=== PATIENT | male | born 1930 | race Caucasian/White ===

== ENCOUNTER 2021-05-01 23:33 | Inpatient (IN) | payer MEDICARE ==
[~2021-05-01] VITALS: Ht 190.5 cm; Wt 79.0 kg
[2021-05-01] MEDS ORDERED: FURO20TA2 PO (23:51)
[2021-05-01] MEDS ORDERED: TAMS1CAP17 PO (23:51)
[2021-05-01] MEDS ORDERED: PROP40TA62 PO (23:51)
[2021-05-01] MEDS ORDERED: WARF4TAB52 PO (23:51)
[2021-05-01] MEDS ORDERED: AMLO1TAB24 (23:51)
[2021-05-01] MEDS ORDERED: WARF-60 PO (23:51)
[2021-05-01] MEDS ORDERED: FINA5TAB2 PO (23:51)
[2021-05-01] MEDS ORDERED: SIMV20TA22 PO (23:51)
[2021-05-01] MEDS ORDERED: BACTDSTA (23:51)
[2021-05-01] MEDS ORDERED: PHEN100C PO (23:51)
[2021-05-02] VITALS (18 sets, daily range): BP systolic 116–208; BP diastolic 57–92
[2021-05-02 00:28] LABS: HEMATOCRIT 46.9 % (42.0-52.0); HEMOGLOBIN 15.4 g/dl (13.5-17.5); MEAN CORPUSCULAR HEMOGLOBIN 30.5 pg (27.0-33.0); MEAN CORPUSCULAR HGB CONC 32.8 g/dl (32.0-36.5); MEAN CORPUSCULAR VOLUME 92.9 fl (80.0-96.0); PLATELET COUNT, AUTOMATED 186 10^3/uL (150-450); RED BLOOD COUNT 5.05 10^6/uL (4.30-6.10); WHITE BLOOD COUNT 13.2 10^3/uL (4.0-10.0)
[2021-05-02 00:42] LABS: INR 1.29; PROTHROMBIN TIME 16.5 SECONDS (12.7-14.5)
[2021-05-02 01:02] LABS: RSV AMPLIFICATION NEGATIVE (NEGATIVE)
[2021-05-02] MEDS ORDERED: NS 1,000 ML IV SCH ×2 (02:30→11:30)
[2021-05-02] MEDS ORDERED: ASPIRIN 81MG ENTERIC TABLET PO SCH (03:00)
[2021-05-02] MEDS ORDERED: cefTRIAXone SOD 1 GM in D5W MINI-BAG PLUS 50 ML IV SCH (04:00)
[2021-05-02] MEDS ORDERED: DOXYCYCLINE HYCLATE 100 MG in D5W MINI-BAG PLUS 100 ML IV SCH (05:00)
[2021-05-02] MEDS ORDERED: DEXTROSE 50% 50 ML SYRINGE IV PRN (07:25)
[2021-05-02] MEDS ORDERED: GLUCAGON INJ 1MG VIAL SC PRN (07:25)
[2021-05-02] MEDS ORDERED: GLUCOSE 4GM CHEW TABLET PO PRN (07:25)
[2021-05-02] MEDS: HumaLOG INSULIN (NovoLOG) PER UNIT SC SCH ×4 (08:01→23:56)
[2021-05-02] MEDS ORDERED: ASPIRIN 300 MG SUPP PR SCH (09:00)
[2021-05-02 09:02] LABS: HEMATOCRIT 45.2 % (42.0-52.0); HEMOGLOBIN 14.8 g/dl (13.5-17.5); MEAN CORPUSCULAR HEMOGLOBIN 30.9 pg (27.0-33.0); MEAN CORPUSCULAR HGB CONC 32.7 g/dl (32.0-36.5); MEAN CORPUSCULAR VOLUME 94.4 fl (80.0-96.0); PLATELET COUNT, AUTOMATED 155 10^3/uL (150-450); RED BLOOD COUNT 4.79 10^6/uL (4.30-6.10); WHITE BLOOD COUNT 13.5 10^3/uL (4.0-10.0)
[2021-05-02 09:22] LABS: INR 1.41; PROTHROMBIN TIME 17.7 SECONDS (12.7-14.5)
[2021-05-02 09:23] LABS: PARTIAL THROMBOPLASTIN TIME 32.4 SECONDS (25.9-37.0)
[2021-05-02 09:25] LABS: ALBUMIN 3.4 GM/DL (3.2-5.2); BILIRUBIN,DIRECT 0.2 MG/DL (0.0-0.2); BILIRUBIN,TOTAL 0.7 MG/DL (0.2-1.0); CALCIUM LEVEL 8.9 MG/DL (8.8-10.2); CHOLESTEROL RISK RATIO 2.942 (<5); CREATININE FOR GFR 1.26 MG/DL (0.70-1.30); GLOMERULAR FILTRATION RATE 57.5 (>35); TOTAL PROTEIN 7.5 GM/DL (6.4-8.2)
[2021-05-02 09:39] LABS: HEMOGLOBIN A1c 5.6 %
[2021-05-02] MEDS ORDERED: MED NOTE (10:24)
[2021-05-02] MEDS ORDERED: VITATAB64 PO (10:28)
[2021-05-02] MEDS ORDERED: LOSA100T45 PO (10:28)
[2021-05-02] MEDS ORDERED: VITMTA PO (10:28)
[2021-05-02] MEDS ORDERED: FISH1000 PO (10:28)
[2021-05-02 10:37] LABS: ATYPICAL LYMPH 6 % (0-5); LYMPHOCYTES 12 % (16-44); MONOCYTES 12 % (0-5); NEUTROPHILS 70 % (28-66); PLATELET ESTIMATE NORMAL (NORMAL)
[2021-05-02 10:38] LABS: ANISOCYTOSIS 1+; POLYCHROMASIA 1+
[2021-05-02] MEDS ORDERED: HOME MED LIST COMPLETE! XX SCH (10:40)
[2021-05-02] MEDS ORDERED: ISOVUE-370 76% 100ML VIAL As Ordered ONE (12:38)
[2021-05-02] MEDS ORDERED: SODIUM CHLORIDE 3% 500 ML IV SCH (14:00)
[2021-05-02 14:01] LABS: BLOOD UREA NITROGEN 35 MG/DL (7-18); CALCIUM LEVEL 8.8 MG/DL (8.8-10.2); CARBON DIOXIDE LEVEL 21 MEQ/L (21-32); CHLORIDE LEVEL 113 MEQ/L (98-107); CREATININE FOR GFR 1.13 MG/DL (0.70-1.30); GLOMERULAR FILTRATION RATE > 60.0 (>35); GLUCOSE, FASTING 113 MG/DL (70-100); POTASSIUM SERUM 5.4 MEQ/L (3.5-5.1); SODIUM LEVEL 141 MEQ/L (136-145)
[2021-05-02] MEDS: PHENYTOIN 100 MG/2 ML VIAL (J1165) IV SCH ×2 (15:50→21:19)
[2021-05-02 18:44] LABS: BLOOD UREA NITROGEN 32 MG/DL (7-18); CARBON DIOXIDE LEVEL 25 MEQ/L (21-32); CHLORIDE LEVEL 110 MEQ/L (98-107); CREATININE FOR GFR 1.14 MG/DL (0.70-1.30); GLOMERULAR FILTRATION RATE > 60.0 (>35); GLUCOSE, FASTING 132 MG/DL (70-100); POTASSIUM SERUM 4.9 MEQ/L (3.5-5.1); SODIUM LEVEL 142 MEQ/L (136-145)
[2021-05-02 19:23] LABS: MAGNESIUM LEVEL 2.4 MG/DL (1.8-2.4); PHOSPHORUS LEVEL 2.9 MG/DL (2.5-4.9)
[2021-05-03] VITALS (37 sets, daily range): BP systolic 114–184; BP diastolic 56–113
[2021-05-03 00:36] LABS: CALCIUM LEVEL 8.5 MG/DL (8.8-10.2); CREATININE FOR GFR 1.23 MG/DL (0.70-1.30); GLOMERULAR FILTRATION RATE 59.1 (>35); POTASSIUM SERUM 4.5 MEQ/L (3.5-5.1)
[2021-05-03] MEDS ORDERED: GLYCOPYRROLATE INJ 0.2 MG/ML 2 ML VIAL IV ONE (04:55)
[2021-05-03] MEDS: PHENYTOIN 100 MG/2 ML VIAL (J1165) IV SCH ×3 (05:21→21:35)
[2021-05-03 05:27] LABS: HEMATOCRIT 43.4 % (42.0-52.0); HEMOGLOBIN 13.9 g/dl (13.5-17.5); MEAN CORPUSCULAR VOLUME 93.7 fl (80.0-96.0); PLATELET COUNT, AUTOMATED 142 10^3/uL (150-450); RED BLOOD COUNT 4.63 10^6/uL (4.30-6.10); WHITE BLOOD COUNT 11.8 10^3/uL (4.0-10.0)
[2021-05-03 05:38] LABS: INR 1.6; PROTHROMBIN TIME 19.5 SECONDS (12.7-14.5)
[2021-05-03 06:00] LABS: BLOOD UREA NITROGEN 35 MG/DL (7-18); CALCIUM LEVEL 8.7 MG/DL (8.8-10.2); CARBON DIOXIDE LEVEL 23 MEQ/L (21-32); CHLORIDE LEVEL 118 MEQ/L (98-107); CREATININE FOR GFR 1.15 MG/DL (0.70-1.30); GLOMERULAR FILTRATION RATE > 60.0 (>35); GLUCOSE, FASTING 138 MG/DL (70-100); POTASSIUM SERUM 4.5 MEQ/L (3.5-5.1); SODIUM LEVEL 149 MEQ/L (136-145)
[2021-05-03] MEDS: HumaLOG INSULIN (NovoLOG) PER UNIT SC SCH ×3 (06:00→17:56)
[2021-05-03 11:57] LABS: BLOOD UREA NITROGEN 34 MG/DL (7-18); CALCIUM LEVEL 8.8 MG/DL (8.8-10.2); CARBON DIOXIDE LEVEL 25 MEQ/L (21-32); CHLORIDE LEVEL 119 MEQ/L (98-107); CREATININE FOR GFR 1.11 MG/DL (0.70-1.30); GLOMERULAR FILTRATION RATE > 60.0 (>35); GLUCOSE, FASTING 143 MG/DL (70-100); POTASSIUM SERUM 4.2 MEQ/L (3.5-5.1); SODIUM LEVEL 150 MEQ/L (136-145)
[2021-05-03 19:12] LABS: BLOOD UREA NITROGEN 34 MG/DL (7-18); CALCIUM LEVEL 9.6 MG/DL (8.8-10.2); CARBON DIOXIDE LEVEL 27 MEQ/L (21-32); CHLORIDE LEVEL 115 MEQ/L (98-107); CREATININE FOR GFR 1.21 MG/DL (0.70-1.30); GLOMERULAR FILTRATION RATE > 60.0 (>35); GLUCOSE, FASTING 129 MG/DL (70-100); POTASSIUM SERUM 4.1 MEQ/L (3.5-5.1); SODIUM LEVEL 151 MEQ/L (136-145)
[2021-05-04] VITALS (36 sets, daily range): BP systolic 137–194; BP diastolic 61–116
[2021-05-04 00:39] LABS: BLOOD UREA NITROGEN 31 MG/DL (7-18); CALCIUM LEVEL 8.9 MG/DL (8.8-10.2); CARBON DIOXIDE LEVEL 24 MEQ/L (21-32); CHLORIDE LEVEL 119 MEQ/L (98-107); CREATININE FOR GFR 1.09 MG/DL (0.70-1.30); GLOMERULAR FILTRATION RATE > 60.0 (>35); GLUCOSE, FASTING 134 MG/DL (70-100); POTASSIUM SERUM 4.3 MEQ/L (3.5-5.1); SODIUM LEVEL 148 MEQ/L (136-145)
[2021-05-04] MEDS: PHENYTOIN 100 MG/2 ML VIAL (J1165) IV SCH ×3 (05:04→22:00)
[2021-05-04] MEDS: HumaLOG INSULIN (NovoLOG) PER UNIT SC SCH ×4 (05:34→17:27)
[2021-05-04 08:15] LABS: HEMATOCRIT 45.1 % (42.0-52.0); HEMOGLOBIN 14.1 g/dl (13.5-17.5); MEAN CORPUSCULAR HGB CONC 31.3 g/dl (32.0-36.5); PLATELET COUNT, AUTOMATED 149 10^3/uL (150-450); WHITE BLOOD COUNT 12.6 10^3/uL (4.0-10.0)
[2021-05-04 08:31] LABS: INR 1.68; PROTHROMBIN TIME 20.2 SECONDS (12.7-14.5)
[2021-05-04 08:46] LABS: BLOOD UREA NITROGEN 32 MG/DL (7-18); CALCIUM LEVEL 9.3 MG/DL (8.8-10.2); CARBON DIOXIDE LEVEL 25 MEQ/L (21-32); CHLORIDE LEVEL 118 MEQ/L (98-107); CREATININE FOR GFR 1.12 MG/DL (0.70-1.30); GLOMERULAR FILTRATION RATE > 60.0 (>35); GLUCOSE, FASTING 136 MG/DL (70-100); POTASSIUM SERUM 4.2 MEQ/L (3.5-5.1); SODIUM LEVEL 152 MEQ/L (136-145)
[2021-05-04 12:19] LABS: BLOOD UREA NITROGEN 30 MG/DL (7-18); CALCIUM LEVEL 9.1 MG/DL (8.8-10.2); CARBON DIOXIDE LEVEL 28 MEQ/L (21-32); CHLORIDE LEVEL 119 MEQ/L (98-107); GLOMERULAR FILTRATION RATE > 60.0 (>35); GLUCOSE, FASTING 136 MG/DL (70-100); POTASSIUM SERUM 3.9 MEQ/L (3.5-5.1); SODIUM LEVEL 151 MEQ/L (136-145)
[2021-05-04] MEDS: METOPROLOL 5 MG/5 ML VIAL IV SCH ×2 (14:08→20:13)
[2021-05-04 14:48] LABS: PHENYTOIN (DILANTIN) 11.6 UG/ML (10.0-20.0)
[2021-05-04] MEDS: ASPIRIN 300 MG SUPP PR SCH (15:15)
[2021-05-04] MEDS: D5W/0.45% SODIUM CHLORIDE 1,000 ML IV SCH (16:00)
[2021-05-04 18:28] LABS: BLOOD UREA NITROGEN 32 MG/DL (7-18); CALCIUM LEVEL 8.9 MG/DL (8.8-10.2); CARBON DIOXIDE LEVEL 29 MEQ/L (21-32); CHLORIDE LEVEL 119 MEQ/L (98-107); GLOMERULAR FILTRATION RATE > 60.0 (>35); GLUCOSE, FASTING 158 MG/DL (70-100); POTASSIUM SERUM 4.2 MEQ/L (3.5-5.1); SODIUM LEVEL 155 MEQ/L (136-145)
[2021-05-05] VITALS (11 sets, daily range): BP systolic 154–187; BP diastolic 65–84
[2021-05-05] MEDS: HumaLOG INSULIN (NovoLOG) PER UNIT SC SCH ×3 (00:39→11:58)
[2021-05-05 01:06] LABS: BLOOD UREA NITROGEN 30 MG/DL (7-18); CALCIUM LEVEL 8.7 MG/DL (8.8-10.2); CARBON DIOXIDE LEVEL 29 MEQ/L (21-32); CHLORIDE LEVEL 121 MEQ/L (98-107); CREATININE FOR GFR 1.16 MG/DL (0.70-1.30); GLOMERULAR FILTRATION RATE > 60.0 (>35); GLUCOSE, FASTING 141 MG/DL (70-100); POTASSIUM SERUM 4.2 MEQ/L (3.5-5.1); SODIUM LEVEL 153 MEQ/L (136-145)
[2021-05-05] MEDS: METOPROLOL 5 MG/5 ML VIAL IV SCH (02:04)
[2021-05-05] MEDS: D5W/0.45% SODIUM CHLORIDE 1,000 ML IV SCH (05:29)
[2021-05-05] MEDS: PHENYTOIN 100 MG/2 ML VIAL (J1165) IV SCH ×2 (05:29→13:46)
[2021-05-05 06:06] LABS: HEMATOCRIT 43.9 % (42.0-52.0); HEMOGLOBIN 13.7 g/dl (13.5-17.5); MEAN CORPUSCULAR HEMOGLOBIN 30.1 pg (27.0-33.0); MEAN CORPUSCULAR HGB CONC 31.2 g/dl (32.0-36.5); MEAN CORPUSCULAR VOLUME 96.5 fl (80.0-96.0); PLATELET COUNT, AUTOMATED 159 10^3/uL (150-450); RED BLOOD COUNT 4.55 10^6/uL (4.30-6.10); WHITE BLOOD COUNT 10.6 10^3/uL (4.0-10.0)
[2021-05-05 06:19] LABS: INR 1.7; PROTHROMBIN TIME 20.4 SECONDS (12.7-14.5)
[2021-05-05] MEDS ORDERED: hydrALAZINE 20MG/ML 1ML VIAL (J0360 PER 20MG) IV SCH ×3 (08:00→14:00)
[2021-05-05] MEDS: ASPIRIN 300 MG SUPP PR SCH (08:05)
[2021-05-05] MEDS ORDERED: hydrALAZINE 20MG/ML 1ML VIAL (J0360 PER 20MG) IV ONE (09:30)
[2021-05-05] MEDS ORDERED: MORPHINE 2 MG/ML 1ML VIAL (J2270) As Ordered ONE (16:40)
[2021-05-05] MEDS ORDERED: ONDANSETRON 4MG/2ML VIAL IV PRN (16:50)
[2021-05-05] MEDS ORDERED: SCOPOLAMINE 1MG TRANSDERMAL PATCH TOP PRN (16:50)
[2021-05-05] MEDS ORDERED: ATROPINE SULFATE 1% OP SOLN 2 ML BTL SL PRN (16:50)
[2021-05-05] MEDS ORDERED: LORazepam 2 MG/ML VIAL As Ordered ONE (16:54)
[2021-05-05] MEDS: LORazepam 2 MG/ML VIAL IV PRN ×2 (17:01→19:38)
[2021-05-05] MEDS: MORPHINE 2 MG/ML 1ML VIAL (J2270) IV PRN ×2 (17:02→19:02)
== END 2021-05-05 21:45 | disposition expired | DRG 64 ==
LOC: M ED 23:33 → M ED INP 05-02 02:27 → ENRESERV 05-02 03:57 → M PCU 05-02 04:45
PROVIDERS: ADMIT Family Medicine; ATTEND Internal Medicine
DX: I63.311 Cerebral infarction due to thrombosis of right middle cerebral artery (principal); I61.8 Other nontraumatic intracerebral hemorrhage; G93.6 Cerebral edema; J96.00 Acute respiratory failure, unspecified whether with hypoxia or hypercapnia; G81.92 Hemiplegia, unspecified affecting left dominant side; M62.82 Rhabdomyolysis; R47.1 Dysarthria and anarthria; E11.9 Type 2 diabetes mellitus without complications; I10 Essential (primary) hypertension; G25.0 Essential tremor; R29.810 Facial weakness; Z51.5 Encounter for palliative care; Z66 Do not resuscitate; Z85.828 Personal history of other malignant neoplasm of skin; Z95.2 Presence of prosthetic heart valve; Z79.01 Long term (current) use of anticoagulants; Z79.899 Other long term (current) drug therapy